=== PATIENT | male | born 2005 | race Caucasian/White ===

== ENCOUNTER 2025-07-05 11:56 | Emergency (ER) | payer MEDICAID, OTHER ==
[~2025-07-05] VITALS: Ht 182.9 cm; Wt 122.7 kg
[2025-07-05 12:01] VITALS: BP 130/80; PULSE 79; RESP 18; TEMP 97.3; O2SAT 99
[2025-07-05 12:46] LABS: COVID AG,FIA SOURCE NASAL SWAB
[2025-07-05 13:06] LABS: RAPID GROUP A STREP PRELIM. NEGATIVE (NEGATIVE)
[2025-07-05 13:12] LABS: SARS-COV2 (COVID) ANTIGEN,FIA Negative (Negative)
[2025-07-05 13:13] LABS: INFLUENZA TYPE A NEGATIVE FOR TYPE A (NEGATIVE); INFLUENZA TYPE B NEGATIVE FOR TYPE B (NEGATIVE)
[2025-07-05] MEDS ORDERED: IBUP-1492 PO (14:06)
[2025-07-05] MEDS: IBUPROFEN 600 MG TABLET PO ONE (14:08)
[2025-07-05] MEDS: ACETAMINOPHEN 500 MG TABLET PO ONE (14:08)
== END 2025-07-05 14:26 | disposition home or self-care (01) ==
LOC: EMS 11:57
DX: J06.9 Acute upper respiratory infection, unspecified (principal); M79.641 Pain in right hand; F10.90 Alcohol use, unspecified, uncomplicated; Z20.822 Contact with and (suspected) exposure to COVID-19; Y90.9 Presence of alcohol in blood, level not specified
CPT/HCPCS: 87081; 87430; 87804; 99283